=== PATIENT | female | born 1985 | race Caucasian/White ===

== ENCOUNTER 2017-04-22 10:13 | Emergency (ER) | payer OTHER ==
[~2017-04-22] VITALS: Ht 170.2 cm; Wt 90.9 kg
[2017-04-22 11:26] LABS: INFLUENZA A NONE DETECTED (NONE DETECT); INFLUENZA B NONE DETECTED (NONE DETECT)
[2017-04-22] MEDS ORDERED: AMOXICILLIN500 MG PO ×2 (11:26→11:36)
[2017-04-22] MEDS ORDERED: ZYRTEC10 MG PO (11:26)
[2017-04-22] MEDS ORDERED: KLONOPIN1 MG PO (11:27)
[2017-04-22] MEDS ORDERED: FLUOXETINE10 M2 PO (11:28)
[2017-04-22] MEDS ORDERED: LISINOPRIL20 MG PO (11:29)
[2017-04-22] MEDS ORDERED: SINEQUAN10 MG PO (11:30)
[2017-04-22] MEDS ORDERED: FISH OIL1000 MG PO (11:32)
[2017-04-22] MEDS ORDERED: ORTHO MICRONO0.35 MG PO (11:32)
[2017-04-22] MEDS ORDERED: MULTI VIT PO (11:33)
[2017-04-22] MEDS ORDERED: B COMPLEX +C PO (11:33)
[2017-04-22 11:46] VITALS: BP 129/81
== END 2017-04-22 11:46 | disposition home or self-care (01) | DRG 153 ==
LOC: ED 10:13
PROVIDERS: Emergency Medicine
DX: J02.9 Acute pharyngitis, unspecified (principal); H92.09 Otalgia, unspecified ear; R05 Cough; I10 Essential (primary) hypertension; J45.909 Unspecified asthma, uncomplicated

== ENCOUNTER 2017-05-23 21:37 | Emergency (ER) | payer OTHER ==
[~2017-05-23] VITALS: Ht 170.2 cm; Wt 118.0 kg
[~2017-05-23 21:37] MED LIST: AMOXICILLIN500 MG PO; B COMPLEX +C PO; FISH OIL1000 MG PO; FLUOXETINE10 M2 PO; KLONOPIN1 MG PO; LISINOPRIL20 MG PO; MULTI VIT PO; ORTHO MICRONO0.35 MG PO; SINEQUAN10 MG PO; ZYRTEC10 MG PO
[2017-05-23] MEDS ORDERED: FLEXERIL PO (22:57)
[2017-05-23] MEDS ORDERED: NAPROSYN500 MG PO (22:57)
[2017-05-23] MEDS ORDERED: ALBUTEROL SUL0.083 % IN (23:19)
[2017-05-23 23:20] VITALS: BP 108/55
[2017-05-23] MEDS ORDERED: PROAIR HFA108 MCG/AC IN (23:21)
== END 2017-05-23 23:20 | disposition home or self-care (01) | DRG 552 ==
LOC: ED 21:37
DX: S13.4XXA Sprain of ligaments of cervical spine, initial encounter (principal); S33.5XXA Sprain of ligaments of lumbar spine, initial encounter; V42.6XXA Car passenger injured in collision with two- or three-wheeled motor vehicle in traffic accident, initial encounter; Y92.414 Local residential or business street as the place of occurrence of the external cause

== ENCOUNTER 2017-08-04 01:18 | Emergency (ER) | payer OTHER ==
[~2017-08-04] VITALS: Ht 170.2 cm; Wt 132.6 kg
[~2017-08-04 01:18] MED LIST changes: +ALBUTEROL SUL0.083 % IN; +FLEXERIL PO; +NAPROSYN500 MG PO; +PROAIR HFA108 MCG/AC IN
[2017-08-04] MEDS ORDERED: BACTROBAN21 EX (01:47)
[2017-08-04 01:55] VITALS: BP 118/82
== END 2017-08-04 01:57 | disposition home or self-care (01) | DRG 759 ==
LOC: ED 01:18
DX: L29.2 Pruritus vulvae (principal); T49.0X5A Adverse effect of local antifungal, anti-infective and anti-inflammatory drugs, initial encounter; L25.1 Unspecified contact dermatitis due to drugs in contact with skin; Y92.009 Unspecified place in unspecified non-institutional (private) residence as the place of occurrence of the external cause

== ENCOUNTER 2018-04-22 21:07 | Emergency (ER) | payer OTHER ==
[~2018-04-22] VITALS: Ht 170.2 cm; Wt 91.0 kg
[~2018-04-22 21:07] MED LIST changes: +BACTROBAN21 EX
[2018-04-22 22:24] LABS: HEMATOCRIT 44.4 % (37.0-47.0); HEMOGLOBIN 13.3 g/dl (12.0-16.0); IMMATURE GRANULOCYTES 0.5 % (0.0-5.0); MEAN CELL VOLUME 88.3 fL CALC (80.0-100.0); MEAN CORPUSCULAR HGB 26.4 pG CALC (26.0-32.0); NEUT# 6.76 thou/uL (2.00-7.15); RED BLOOD COUNT 5.03 mill/uL (4.20-5.60); RED CELL DISTRI WIDTH 14.6 % (11.5-15.5)
[2018-04-22 22:25] LABS: URINE BILIRUBIN - DIPSTICK NEGATIVE (NEGATIVE); URINE BLOOD DIPSTICK LARGE (NEGATIVE); URINE COLOR YELLOW; URINE GLUCOSE - DIPSTICK NEGATIVE (NEGATIVE); URINE KETONE NEGATIVE (NEGATIVE); URINE LEUK ESTERASE NEGATIVE (NEGATIVE); URINE NITRITE - DIPSTICK NEGATIVE (Negative); URINE PH 5.5 (4.5-8.0); URINE PROTEIN - DIPSTICK TRACE mg/dL (NEG-TRACE); URINE SPECIFIC GRAVITY >=1.030; URINE UROBILINOGEN - DIPSTICK 0.2 E.U./dL (0.2)
[2018-04-22 22:34] LABS: URINE BACTERIA FEW hpf; URINE MUCUS FEW hpf (NONE-FEW); URINE SQUAMOUS EPITHELIAL CELL FEW EPI/hpf (0-FEW)
[2018-04-22 22:36] LABS: ALBUMIN 4.2 g/dL (3.2-5.0); ALKALINE PHOSPHATASE 84 u/l (38-126); ANION GAP 12 (6-22 (CALC)); BILIRUBIN, TOTAL 0.4 mg/dL (0.0-1.4); BUN 13 mg/dL (7-17); BUN/CREATININE RATIO 19 (12-20 (CALC)); CARBON DIOXIDE 27 mmol/l (22-30); CHLORIDE 107 mmol/l (95-108); CREATININE 0.7 mg/dL (0.5-1.0); GFR > 60 ML/MIN (>=60 (CALC)); GFR FOR AFR.AMER. > 60 ML/MIN (>=60 (CALC)); POTASSIUM 3.8 mmol/l (3.5-5.1); SGOT/AST 67 u/l (14-36); SODIUM 142 mmol/l (137-146); TOTAL PROTEIN 7.2 g/dL (6.3-8.2)
[2018-04-22] MEDS ORDERED: LOMOTIL2.5 MG PO (23:28)
[2018-04-23 00:19] VITALS: BP 139/76
== END 2018-04-23 00:10 | disposition home or self-care (01) ==
LOC: ED 21:07
PROVIDERS: Family Medicine
DX: I10 Essential (primary) hypertension (principal); K52.9 Noninfective gastroenteritis and colitis, unspecified; R10.9 Unspecified abdominal pain; R19.7 Diarrhea, unspecified; R11.2 Nausea with vomiting, unspecified

== ENCOUNTER 2018-08-26 21:52 | Emergency (ER) | payer OTHER ==
[~2018-08-26] VITALS: Ht 170.2 cm; Wt 105.4 kg
[~2018-08-26 21:52] MED LIST changes: +LOMOTIL2.5 MG PO
[2018-08-26 22:23] LABS: HEMATOCRIT 38.5 % (37.0-47.0); HEMOGLOBIN 11.9 g/dl (12.0-16.0); IMMATURE GRANULOCYTES 0.6 % (0.0-5.0); MEAN CELL VOLUME 85.4 fL CALC (80.0-100.0); MEAN CORPUSCULAR HGB 26.4 pG CALC (26.0-32.0); MEAN CORPUSCULAR HGB CONC 30.9 g/L CALC (32.0-36.0); NEUT# 6.22 thou/uL (2.00-7.15); RED BLOOD COUNT 4.51 mill/uL (4.20-5.60); RED CELL DISTRI WIDTH 14.1 % (11.5-15.5)
[2018-08-26 22:24] LABS: URINE BILIRUBIN - DIPSTICK NEGATIVE (NEGATIVE); URINE BLOOD DIPSTICK NEGATIVE (NEGATIVE); URINE COLOR YELLOW; URINE GLUCOSE - DIPSTICK NEGATIVE (NEGATIVE); URINE KETONE NEGATIVE (NEGATIVE); URINE LEUK ESTERASE NEGATIVE (NEGATIVE); URINE NITRITE - DIPSTICK NEGATIVE (Negative); URINE PROTEIN - DIPSTICK TRACE mg/dL (NEG-TRACE); URINE SPECIFIC GRAVITY >=1.030; URINE UROBILINOGEN - DIPSTICK 0.2 E.U./dL (0.2)
[2018-08-26 22:53] LABS: ALBUMIN 4.1 g/dL (3.2-5.0); ALKALINE PHOSPHATASE 90 u/l (38-126); AMYLASE 43 u/l (30-110); ANION GAP 15 (6-22 (CALC)); BILIRUBIN, TOTAL 0.4 mg/dL (0.0-1.4); BUN 7 mg/dL (7-17); BUN/CREATININE RATIO 13 (12-20 (CALC)); CARBON DIOXIDE 27 mmol/l (22-30); CHLORIDE 101 mmol/l (95-108); CREATININE 0.5 mg/dL (0.5-1.0); GFR > 60 ML/MIN (>=60 (CALC)); GFR FOR AFR.AMER. > 60 ML/MIN (>=60 (CALC)); LIPASE 186 u/l (23-300); POTASSIUM 3.6 mmol/l (3.5-5.1); SGOT/AST 74 u/l (14-36); SODIUM 140 mmol/l (137-146); TOTAL PROTEIN 7.8 g/dL (6.3-8.2)
[2018-08-26] MEDS ORDERED: KEFLEX500 M1 PO (23:37)
[2018-08-26 23:52] VITALS: BP 161/94
== END 2018-08-26 23:52 | disposition home or self-care (01) ==
LOC: ED 21:52
PROVIDERS: Family Medicine
DX: L08.9 Local infection of the skin and subcutaneous tissue, unspecified (principal); R73.9 Hyperglycemia, unspecified; W26.8XXA Contact with other sharp object(s), not elsewhere classified, initial encounter

== ENCOUNTER 2018-11-16 15:56 | Emergency (ER) | payer OTHER ==
[~2018-11-16] VITALS: Ht 170.2 cm; Wt 90.0 kg
[~2018-11-16 15:56] MED LIST changes: +KEFLEX500 M1 PO
[2018-11-16] MEDS ORDERED: VALACYCLOVIR HCL1 GM PO (16:40)
[2018-11-16] MEDS ORDERED: ALBUTEROL SUL0.083 % IN (17:41)
[2018-11-16] MEDS ORDERED: AMOXICILLIN875 MG PO (17:41)
[2018-11-16] MEDS ORDERED: PREDNISONE50 MG PO (17:41)
[2018-11-16] MEDS ORDERED: VENTOLIN HFA IN (17:41)
[2018-11-16 17:45] VITALS: BP 119/74
== END 2018-11-16 17:45 | disposition home or self-care (01) ==
LOC: ED 15:56
DX: J06.9 Acute upper respiratory infection, unspecified (principal); J02.9 Acute pharyngitis, unspecified; I10 Essential (primary) hypertension; R05 Cough; R50.9 Fever, unspecified; R52 Pain, unspecified

== ENCOUNTER 2018-12-09 21:01 | Emergency (ER) | payer OTHER ==
[~2018-12-09] VITALS: Ht 170.2 cm; Wt 95.4 kg
[~2018-12-09 21:01] MED LIST changes: +AMOXICILLIN875 MG PO; +PREDNISONE50 MG PO; +VALACYCLOVIR HCL1 GM PO; +VENTOLIN HFA IN
[2018-12-09] MEDS ORDERED: BACLOFEN10 MG PO (21:19)
[2018-12-09] MEDS ORDERED: LYRICA75 MG PO (21:19)
[2018-12-09 22:58] VITALS: BP 132/68
[2018-12-09] MEDS ORDERED: FLEXERIL PO (22:59)
[2018-12-09] MEDS ORDERED: NAPROXEN500 MG PO (22:59)
== END 2018-12-09 22:58 | disposition home or self-care (01) ==
LOC: ED 21:01
DX: S33.5XXA Sprain of ligaments of lumbar spine, initial encounter (principal); I10 Essential (primary) hypertension; X58.XXXA Exposure to other specified factors, initial encounter

== ENCOUNTER 2019-03-13 | Emergency (ER) | payer OTHER ==
[~2019-03-13] MED LIST changes: +BACLOFEN10 MG PO; +LYRICA75 MG PO; +NAPROXEN500 MG PO
[2019-03-13] MEDS ORDERED: EFFEXOR37.5 MG PO (21:57)
[2019-03-13 22:17] LABS: HEMATOCRIT 37.6 % (37.0-47.0); HEMOGLOBIN 11.2 g/dl (12.0-16.0); IMMATURE GRANULOCYTES 0.6 % (0.0-5.0); MEAN CELL VOLUME 84.7 fL CALC (80.0-100.0); MEAN CORPUSCULAR HGB 25.2 pG CALC (26.0-32.0); MEAN CORPUSCULAR HGB CONC 29.8 g/L CALC (32.0-36.0); NEUT# 5.91 thou/uL (2.00-7.15); RED BLOOD COUNT 4.44 mill/uL (4.20-5.60); RED CELL DISTRI WIDTH 14.6 % (11.5-15.5)
[2019-03-13 22:31] LABS: ALBUMIN 4.2 g/dL (3.2-5.0); ALKALINE PHOSPHATASE 62 u/l (38-126); AMYLASE 59 u/l (30-110); ANION GAP 14 (6-22 (CALC)); BILIRUBIN, TOTAL 0.4 mg/dL (0.0-1.4); BUN 9 mg/dL (7-17); BUN/CREATININE RATIO 12 (12-20 (CALC)); CARBON DIOXIDE 27 mmol/l (22-30); CHLORIDE 103 mmol/l (95-108); CREATININE 0.8 mg/dL (0.5-1.0); GFR > 60 ML/MIN (>=60 (CALC)); GFR FOR AFR.AMER. > 60 ML/MIN (>=60 (CALC)); LIPASE 134 u/l (23-300); POTASSIUM 3.4 mmol/l (3.5-5.1); SGOT/AST 63 u/l (14-36); SODIUM 140 mmol/l (137-146)
[2019-03-13 23:31] LABS: URINE BLOOD DIPSTICK MODERATE (NEGATIVE); URINE COLOR YELLOW; URINE GLUCOSE - DIPSTICK NEGATIVE (NEGATIVE); URINE KETONE NEGATIVE (NEGATIVE); URINE NITRITE - DIPSTICK NEGATIVE (Negative); URINE PROTEIN - DIPSTICK NEGATIVE (NEG-TRACE); URINE SPECIFIC GRAVITY >=1.030; URINE UROBILINOGEN - DIPSTICK 0.2 E.U./dL (0.2)
[2019-03-13 23:33] LABS: URINE BILIRUBIN - DIPSTICK NEGATIVE (NEGATIVE); URINE LEUK ESTERASE SMALL (NEGATIVE)
[2019-03-13 23:43] LABS: URINE MUCUS FEW hpf (NONE-FEW); URINE SQUAMOUS EPITHELIAL CELL MODERATE EPI/hpf (0-FEW)
[2019-03-13] MEDS ORDERED: MAGNESIUM296 ML/BTL PO (23:53)
[2019-03-13] MEDS ORDERED: MIRALAX3350 N1 PO (23:53)
== END 2019-03-14 00:06 | disposition home or self-care (01) ==
PROVIDERS: Family Medicine
DX: K59.00 Constipation, unspecified (principal); I10 Essential (primary) hypertension

== ENCOUNTER 2019-05-15 | Emergency (ER) | payer OTHER ==
[~2019-05-15] MED LIST changes: +EFFEXOR37.5 MG PO; +MAGNESIUM296 ML/BTL PO; +MIRALAX3350 N1 PO
[2019-05-15] MEDS ORDERED: VENTOLIN HFA IN (21:02)
[2019-05-15 21:37] LABS: URINE BILIRUBIN - DIPSTICK NEGATIVE (NEGATIVE); URINE BLOOD DIPSTICK NEGATIVE (NEGATIVE); URINE COLOR YELLOW; URINE GLUCOSE - DIPSTICK NEGATIVE (NEGATIVE); URINE KETONE NEGATIVE (NEGATIVE); URINE LEUK ESTERASE NEGATIVE (NEGATIVE); URINE NITRITE - DIPSTICK NEGATIVE (Negative); URINE PROTEIN - DIPSTICK NEGATIVE (NEG-TRACE); URINE SPECIFIC GRAVITY 1.025; URINE UROBILINOGEN - DIPSTICK 0.2 E.U./dL (0.2)
[2019-05-15 21:38] LABS: HEMATOCRIT 36.2 % (37.0-47.0); IMMATURE GRANULOCYTES 0.5 % (0.0-5.0); MEAN CELL VOLUME 82.8 fL CALC (80.0-100.0); MEAN CORPUSCULAR HGB 25.2 pG CALC (26.0-32.0); MEAN CORPUSCULAR HGB CONC 30.4 g/dL CAL (32.0-36.0); NEUT# 7.03 thou/uL (2.00-7.15); RED BLOOD COUNT 4.37 mill/uL (4.20-5.60); RED CELL DISTRI WIDTH 14.7 % (11.5-15.5)
[2019-05-15 21:49] LABS: URINE AMORPH SEDIMENT MANY hpf (NONE-FEW)
[2019-05-15 22:03] LABS: ANION GAP 12 (6-22 (CALC)); BILIRUBIN, TOTAL 0.4 mg/dL (0.0-1.4); BUN 11 mg/dL (7-17); BUN/CREATININE RATIO 20 (12-20 (CALC)); CARBON DIOXIDE 29 mmol/l (22-30); CHLORIDE 101 mmol/l (95-108); CREATININE 0.6 mg/dL (0.5-1.0); GFR > 60 ML/MIN (>=60 (CALC)); GFR FOR AFR.AMER. > 60 ML/MIN (>=60 (CALC)); SGOT/AST 42 u/l (14-36); SODIUM 138 mmol/l (137-146); TOTAL PROTEIN 7.6 g/dL (6.3-8.2)
[2019-05-15 22:04] LABS: ALKALINE PHOSPHATASE 95 u/l (38-126)
[2019-05-16] MEDS ORDERED: KEFLEX500 M1 PO ×2 (00:33)
[2019-05-16] MEDS ORDERED: NAPROXEN DR500 MG PO ×2 (00:33)
[2019-05-16] MEDS ORDERED: DOXYCYCL HYC100 MG PO (00:33)
--- NOTE | 2019-05-18 12:25 | NUR ---
Notified patient of Covid results (Negative). Advised pt to follow up with PCP or come to ED for urgent needs. Advised pt to continue to practice Covid prevention such as handwashing and avoiding contact with others. Patient verbalized understanding.
== END 2019-05-16 01:00 | disposition home or self-care (01) ==
DX: J06.9 Acute upper respiratory infection, unspecified (principal); N61.1 Abscess of the breast and nipple; J45.909 Unspecified asthma, uncomplicated; I10 Essential (primary) hypertension; Z20.828 Contact with and (suspected) exposure to other viral communicable diseases

== ENCOUNTER 2019-10-02 19:40 | Emergency (ER) | payer OTHER ==
[~2019-10-02] VITALS: Ht 170.2 cm; Wt 91.0 kg
[~2019-10-02 19:40] MED LIST changes: +DOXYCYCL HYC100 MG PO; +NAPROXEN DR500 MG PO
[2019-10-02] MEDS ORDERED: AMOXICILLIN500 MG PO (20:07)
[2019-10-02] MEDS ORDERED: IBUPROFEN600 MG PO (20:07)
[2019-10-02 20:13] VITALS: BP 142/90
== END 2019-10-02 20:21 | disposition home or self-care (01) ==
LOC: ED 19:40
DX: H66.91 Otitis media, unspecified, right ear (principal); I10 Essential (primary) hypertension; J45.909 Unspecified asthma, uncomplicated

== ENCOUNTER 2020-01-02 16:39 | Emergency (ER) | payer OTHER ==
[~2020-01-02] VITALS: Ht 170.2 cm; Wt 120.0 kg
[~2020-01-02 16:39] MED LIST changes: +IBUPROFEN600 MG PO
[2020-01-02 17:11] LABS: HEMATOCRIT 34.3 % (37.0-47.0); HEMOGLOBIN 9.7 g/dl (12.0-16.0); IMMATURE GRANULOCYTES 1.5 % (0.0-5.0); MEAN CORPUSCULAR HGB 22.4 pG CALC (26.0-32.0); MEAN CORPUSCULAR HGB CONC 28.3 g/dL CAL (32.0-36.0); NEUT# 9.74 thou/uL (2.00-7.15); RED BLOOD COUNT 4.34 mill/uL (4.20-5.60); RED CELL DISTRI WIDTH 16.7 % (11.5-15.5)
[2020-01-02 17:26] LABS: ALBUMIN 3.7 g/dL (3.2-5.0); ALKALINE PHOSPHATASE 63 u/l (38-126); ANION GAP 10 (6-22 (CALC)); BILIRUBIN, TOTAL 0.3 mg/dL (0.0-1.4); BUN 18 mg/dL (7-17); BUN/CREATININE RATIO 28 (12-20 (CALC)); CARBON DIOXIDE 26 mmol/l (22-30); CHLORIDE 106 mmol/l (95-108); CREATININE 0.6 mg/dL (0.5-1.0); GFR > 60 ML/MIN (>=60 (CALC)); GFR FOR AFR.AMER. > 60 ML/MIN (>=60 (CALC)); POTASSIUM 3.5 mmol/l (3.5-5.1); SGOT/AST 17 u/l (14-36); SODIUM 138 mmol/l (137-146); TOTAL PROTEIN 7.2 g/dL (6.3-8.2)
[2020-01-02] MEDS ORDERED: MIRALAX17 GM PO (18:27)
[2020-01-02 18:37] VITALS: BP 117/56
== END 2020-01-02 18:38 | disposition home or self-care (01) ==
LOC: ED 16:39
PROVIDERS: Family Medicine
DX: R10.30 Lower abdominal pain, unspecified (principal); K92.1 Melena; K59.00 Constipation, unspecified; I10 Essential (primary) hypertension; J45.909 Unspecified asthma, uncomplicated; Z98.890 Other specified postprocedural states
CPT/HCPCS: Q9967

== ENCOUNTER 2020-01-12 18:42 | Emergency (ER) | payer OTHER ==
[~2020-01-12] VITALS: Ht 170.2 cm; Wt 104.0 kg
[~2020-01-12 18:42] MED LIST changes: +MIRALAX17 GM PO
[2020-01-12 19:31] LABS: HEMATOCRIT 32.7 % (37.0-47.0); HEMOGLOBIN 9.4 g/dl (12.0-16.0); IMMATURE GRANULOCYTES 0.4 % (0.0-5.0); MEAN CELL VOLUME 80.1 fL CALC (80.0-100.0); MEAN CORPUSCULAR HGB CONC 28.7 g/dL CAL (32.0-36.0); NEUT# 5.04 thou/uL (2.00-7.15); RED BLOOD COUNT 4.08 mill/uL (4.20-5.60); RED CELL DISTRI WIDTH 19.2 % (11.5-15.5)
[2020-01-12 20:30] VITALS: BP 128/75
== END 2020-01-12 20:50 | disposition home or self-care (01) ==
LOC: ED 18:42
PROVIDERS: Family Medicine
DX: J06.9 Acute upper respiratory infection, unspecified (principal); I10 Essential (primary) hypertension; J45.909 Unspecified asthma, uncomplicated; Z20.828 Contact with and (suspected) exposure to other viral communicable diseases

== ENCOUNTER 2020-10-15 17:03 | Emergency (ER) | payer OTHER ==
[~2020-10-15] VITALS: Ht 170.2 cm; Wt 104.5 kg
[2020-10-15] MEDS ORDERED: ZPAK PO (18:10)
[2020-10-15 18:34] VITALS: BP 132/80
== END 2020-10-15 18:34 | disposition home or self-care (01) ==
LOC: ED 17:03
DX: U07.1 COVID-19 (principal); I10 Essential (primary) hypertension; J45.909 Unspecified asthma, uncomplicated

== ENCOUNTER 2020-10-17 09:54 | Outpatient (REF) | payer OTHER ==
[~2020-10-17 09:54] MED LIST changes: +ZPAK PO
== END 2020-10-17 14:14 | disposition home or self-care (01) ==
LOC: INF 09:54
DX: U07.1 COVID-19 (principal)

== ENCOUNTER 2020-10-25 19:18 | Emergency (ER) | payer OTHER ==
[~2020-10-25] VITALS: Ht 170.2 cm; Wt 91.0 kg
[2020-10-25 21:45] VITALS: BP 138/72
--- NOTE | 2020-10-26 08:07 | NUR ---
pt is not a candidate for antibodies, spoke with her and she told me she had antibody treatment already a few weeks ago.
== END 2020-10-25 21:45 | disposition home or self-care (01) ==
LOC: ED 19:18
DX: U07.1 COVID-19 (principal); I10 Essential (primary) hypertension; J45.909 Unspecified asthma, uncomplicated